=== PATIENT | male | born 1995 | race Caucasian/White ===

== ENCOUNTER 2022-05-19 05:45 | Day surgery (SDC) | payer OTHER ==
[~2022-05-19] VITALS: Ht 170.2 cm; Wt 86.1 kg
[2022-05-19] VITALS (7 sets, daily range): BP systolic 121–148; BP diastolic 72–93; PULSE 82–105; TEMP 98–98.5
--- NOTE | 2022-05-19 06:58 | NUR ---
BEDSIDE REPORT DONE ORDER WITH NIGHT NURSE CK
--- NOTE | 2022-05-19 09:12 | NUR ---
PATIENT ALERT AND ORIENTED AND JUST WENT DOWN FOR A EDG. BIOSPY WAS PREFORM AND THE CHICKEN WAS ALREADY PASS. PATIENT ABLE TO GET UP AND GET TO THE RESTROOM NO SHORTNESS OF BREATH NOTED. NO VERONA NOTED.
--- NOTE | 2022-05-19 09:16 | NUR ---
Initial visit; Patient and his thanked [employer] for stopping by and offering God's blessings. Patient doing well and will be discharged today.
--- NOTE | 2022-05-19 09:23 | NUR ---
DAVID met with the patient and his , Taylor (ph#[phone]), to discuss discharge plan. The patient lives in [place] with his and their son. He reports independence with ADLs and does not have any DME. The patient states that he does not have a PCP and he obtains his medications from [place] [facility]. The patient does not have a DPOA-HC and he was not interested in completing one at this time. The patient plans to return home with his family upon discharge. No additional needs at this time. *Discharge plan: home with family*
--- NOTE | 2022-05-19 10:33 | NUR ---
DISCHARGE INSTRUCTION WAS GIVEN TO PATIENT AND . BOTH DID NOT HAVE ANY CONCERN AT THIS TIME. EXPLAIN TO SEE DI DOCTOR IF NEEDED. EXPLAIN ABOUT THE BIOSPY. PATIENT HAD NO CONCERN OR QUESTION .
== END 2022-05-19 10:30 | disposition home or self-care (01) ==
LOC: SURG 05:45 → SDCO 05:45
DX: K20.0 Eosinophilic esophagitis (principal); K21.9 Gastro-esophageal reflux disease without esophagitis
CPT/HCPCS: OP; J2704